=== PATIENT | female | born 1940 | race Caucasian/White ===

== ENCOUNTER → 2020-10-11 | Outpatient (CLI) | payer MEDICARE, OTHER ==
[~2020-10-11] MED LIST: ASPI81CH PO; ATOR10 PO; AZIT250 PO; BUDE6HFA INH; CLIN300 PO; CODACE30 PO; DOCU100 PO; Ferrous Sulfat325 M2; HYDACE5 PO; HYDCHL12.5 PO; LEVO750 PO; LEVSOD100 PO; LOSA50 PO; LOSHYD PO; METO25; PROACE100 PO; RXCODACET PO; RXPROACE PO
[2020-10-11 16:22] LABS: Appearance, Urine Clear (Clear); Bilirubin, Urine Neg (Neg); Blood, Urine 1+ (Neg); Color, Urine Yellow (P-Yellow); Glucose Qualitative, Urine Neg (Neg); Ketones, Urine Neg (Neg); Leukocyte Esterase, Urine 1+ (Neg); Nitrite, Urine Pos (Neg); Protein, Urine Neg (Neg); Urobilinogen, Urine NORM (Normal)
[2020-10-11 17:33] LABS: Bacteria Few /hpf; Squamous Epithelial Cells Few /hpf (Few)
== END | disposition home or self-care (01) ==
LOC: LAB 13:20 → LAB SHORT 13:20
PROVIDERS: Family Medicine
DX: N39.0 Urinary tract infection, site not specified (principal)
CPT/HCPCS: 81001; 87086

== ENCOUNTER 2021-04-13 10:23 | Inpatient (IN) | payer MEDICARE, OTHER ==
[~2021-04-13] VITALS: Ht 162.6 cm; Wt 68.0 kg
[2021-04-13] MEDS ORDERED: MEMANTINE HCL PO (10:46)
[2021-04-13] MEDS ORDERED: DONE5 PO (10:46)
[2021-04-13] MEDS ORDERED: PANT40 (10:47)
[2021-04-13] MEDS ORDERED: SERT50 PO (10:47)
[2021-04-13] MEDS ORDERED: LOPE2C (10:48)
[2021-04-13] MEDS ORDERED: ACET325 PO (10:48)
[2021-04-13] MEDS ORDERED: BISA10S (10:48)
[2021-04-13] MEDS ORDERED: DULCOLAX400 MG/5 M PO (10:49)
[2021-04-13 12:06] LABS: BASOPHILS ABSOLUTE AUTO 0.03 K/mm3 (0.00-0.23); BASOPHILS PERCENT AUTO 1 % (0-2); EOSINOPHILS ABSOLUTE AUTO 0.12 K/mm3 (0.00-0.68); EOSINOPHILS PERCENT AUTO 2 % (0-6); IMMATURE GRAN ABSOLUTE AUTO 0.02 K/mm3 (0.00-0.10); IMMATURE GRAN PERCENT AUTO 0 % (0-1); LYMPHOCYTES ABSOLUTE AUTO 1.17 K/mm3 (0.84-5.20); LYMPHOCYTES PERCENT AUTO 21 % (21-46); MONOCYTES ABSOLUTE AUTO 0.42 K/mm3 (0.16-1.47); MONOCYTES PERCENT AUTO 8 % (4-13); Mean Corpuscular HGB 24.4 pg (26.0-34.0); Mean Corpuscular HGB Conc 30.2 g/dL (31.5-36.5); Mean Corpuscular Volume 81 fL (80-100); Mean Platelet Volume 10.9 fL (9.1-12.4); NEUTROPHILS ABSOLUTE AUTO 3.86 K/mm3 (1.96-9.15); NEUTROPHILS PERCENT AUTO 69 % (41-73); Platelet Count 202 K/mm3 (150-400); RDW Coefficient Variation 14.6 % (11.7-14.2); RDW Standard Deviation 43.3 fL (35.1-46.3); Red Blood Cell Count 2.13 M/mm3 (3.80-5.20); White Blood Cell Count 5.62 K/mm3 (4.00-11.30)
[2021-04-13 12:17] LABS: Alanine Aminotransfer (ALT/SGP 15 U/L (12-78); Albumin, Blood 2.7 g/dL (3.4-5.0); Albumin/Globulin Ratio 0.8 (0.8-1.8); Alk Phos 87 U/L (50-136); Anion Gap 7 mmol/L (6-16); Aspartate Aminotrans (AST/SGOT 18 U/L (12-37); Bilirubin, Total 0.2 mg/dL (0.1-1.0); Blood Urea Nitrogen 17 mg/dL (8-24); Bun/Creatinine Ratio 27.9 (12.0-20.0); CO2, Blood 25 mmol/L (21-32); Chloride, Blood 111 mmol/L (98-108); Creatinine, Blood 0.61 mg/dL (0.40-1.00); Globulin, Blood 3.4 g/dL (2.2-4.0); Glomerular Filtration Rate >60 (60-); Glucose, Blood 112 mg/dL (70-99); Potassium, Blood 3.7 mmol/L (3.5-5.5); Sodium, Blood 143 mmol/L (136-145); Total Protein, Blood 6.1 g/dL (6.4-8.2); Troponin I 0.037 ng/mL (0.000-0.040)
[2021-04-13 12:28] LABS: Hemoglobin 5.2 g/dL (11.5-16.0)
[2021-04-13 12:29] LABS: Hematocrit 17.2 % (33.0-51.0)
[2021-04-13 17:35] LABS: Influenza A, PCR NEGATIVE (NEGATIVE); Influenza B, PCR NEGATIVE (NEGATIVE); Resp Syncytial Virus, PCR NEGATIVE (NEGATIVE); SARS-Cov-2 (COVID-19) PCR, MMC NEGATIVE (NEGATIVE)
--- NOTE | 2021-04-13 18:32 | NUR ---
2ND UNIT OF PRBC INFUSING. PT BECOMES AGITATED WILL SCREAM OUT AND HIT BED RAIL, SHE QUICKLY CALMS WHEN REDIRECTED
--- NOTE | 2021-04-13 18:43 | NUR ---
PT ARRIVED FROM ER THIS EVENING WITH GI BLEED. PT HAD ONE UNIT OF PRBC IN THE ER AND THE 2ND UNIT IS INFUSING NOW. PT ARRIVED PLEASANT BUT TEARFUL AND AFRAID. PT WAS ORIENTED TO THE UNIT. AFTER ARRIVAL PT BECOMES ANGRY AND SCAREMING AND HITTING THE BEDRAIL SCREAMING AT PCT, PT WAS REDIRECTED, SHE WAS VERY CONFUSED. AT THE TIME OF THIS NOTE BLOOD RATE WAS INCREASED, PT TALKING NONSENSICAL STATEMENTS THEN STS "I GUESS I SHOULDN'T SAY ANYTHING" BUT IT IS UNCLEAR WHAT PT IS TALKING ABOUT
[2021-04-13 20:24] LABS: Hematocrit 22.4 % (33.0-51.0)
--- NOTE | 2021-04-13 23:20 | NUR ---
ASSUMED CARE OF PATIENT AT 1900. A/O TO SELF ONLY WITH A HX OF DEMENTIA. MAINTAINS OVER 92% ON RA. HEART MURMUR AUSCULTATED, SR W/PAC AVG 64 PER TELEMETRY. RADIALS/PEDALS +1 BL. NO EDEMA NOTED. REPORTS HAVING DARK STOOLS, ALTHOUGH NOT WITNESSED ON THIS SHIFT. BEFORE 1 UNIT PRBC HGB OF 5.2, ALMOST FINISHED WITH THAT UNIT HGB OF 7.0. BED ALARM ON AND BED IN LOW POSITION. WILL UPDATE WITH ANY CHANGES THIS SHIFT.
[2021-04-14 04:38] LABS: Alanine Aminotransfer (ALT/SGP 14 U/L (12-78); Albumin, Blood 2.9 g/dL (3.4-5.0); Albumin/Globulin Ratio 0.8 (0.8-1.8); Alk Phos 91 U/L (50-136); Anion Gap 4 mmol/L (6-16); Aspartate Aminotrans (AST/SGOT 18 U/L (12-37); Bilirubin, Total 0.5 mg/dL (0.1-1.0); Blood Urea Nitrogen 16 mg/dL (8-24); Bun/Creatinine Ratio 26.8 (12.0-20.0); CO2, Blood 28 mmol/L (21-32); Calcium, Blood 8.3 mg/dL (8.5-10.1); Chloride, Blood 112 mmol/L (98-108); Globulin, Blood 3.6 g/dL (2.2-4.0); Glomerular Filtration Rate >60 (60-); Glucose, Blood 100 mg/dL (70-99); Potassium, Blood 3.8 mmol/L (3.5-5.5); Sodium, Blood 144 mmol/L (136-145); Total Protein, Blood 6.5 g/dL (6.4-8.2)
[2021-04-14 07:30] LABS: Hematocrit 21.2 % (33.0-51.0); Hemoglobin 6.8 g/dL (11.5-16.0)
--- NOTE | 2021-04-14 10:09 | NUR ---
PO MEDS ARE HELD PT CAN NOT STAY AWAKE LONG ENOUGH TO TAKE PO MEDS
--- NOTE | 2021-04-14 14:44 | NUR ---
History, Chart, Medications and Allergies reviewed before start of procedure.Pre-Op teaching done. Pt verbalizes understanding. Patient AND NURSE confirms NPO status and agrees with scheduled surgery. PT'S SON AT BEDSIDE TO SIGN CONSENTS
--- NOTE | 2021-04-14 14:49 | NUR ---
04/14/21 1449 Joan Azevedo History, Chart, Medications and Allergies reviewed before start of procedure.MONITOR INTACT WITH CONTINUOUS PULSE OXIMETRY, 3-LEAD,AND INTERMITTENT BP.O2 VIA N/C INTACT THROUGHOUT SEDATION/PROCEDURE. See Anesthesia record
[2021-04-14 16:10] LABS: Hematocrit 22.3 % (33.0-51.0)
--- NOTE | 2021-04-14 18:39 | NUR ---
PT HAS BEEN TO DAY DAY SURGERY FOR ENDOSCOPY, NO INTERVENTION NEEDED. PT CONFUSED, PT EXITING BED THIS AM SHE WAS PLACED INTO A MARIO VEST AT 1100 TODAY. PT WITH VSSIXTO Holcomb. NO ACTIVE BLEEDING. GOOD URINE OUTPUT. PT WITH 3RD UNIT OF BLOOD INFUSING AT THIS TIME. PT'S FAMILY IS INFORMED OF ENDOSCOPT OUTCOME. BLOOD INFUSING AT 125ML/HR.
--- NOTE | 2021-04-14 20:54 | NUR ---
ASSUMED CARE OF PATIENT AT APPROXIMATELY 1900 FROM BRIE Torres RN. PATIENT ALERT TO SELF; UNABLE TO STATE DATE, LOCATION, OR EVENT BUT ABLE TO STATE SHE IS IN [place]. ATTEMPTS TO GET OUT OF BED; WEAK; UNSTEADY GAIT; CONFUSED; VEST IN PLACE. NSR W/ PAC'S ON TELE; OXYGEN SATURATION ABOVE 90% ON ROOM AIR. 3RD PRBC FINISHED INFUSING SHORTLY AFTER SHIFT CHANGE. PATIENT DENIES PAIN, NUMBNESS, TINGLING, DIZZINESS AND NAUSEA. PIV S/L.
[2021-04-14 21:04] LABS: Hematocrit 26.4 % (33.0-51.0); Hemoglobin 8.7 g/dL (11.5-16.0)
[2021-04-15 00:43] LABS: Hematocrit 24.7 % (33.0-51.0)
[2021-04-15 05:00] LABS: Hematocrit 27.3 % (33.0-51.0); Hemoglobin 8.8 g/dL (11.5-16.0)
[2021-04-15 06:06] LABS: Anion Gap 7 mmol/L (6-16); Blood Urea Nitrogen 11 mg/dL (8-24); Bun/Creatinine Ratio 20.4 (12.0-20.0); CO2, Blood 27 mmol/L (21-32); Calcium, Blood 8.4 mg/dL (8.5-10.1); Chloride, Blood 110 mmol/L (98-108); Creatinine, Blood 0.54 mg/dL (0.40-1.00); Ferritin, Serum 12 ng/mL (8-252); Glomerular Filtration Rate >60 (60-); Glucose, Blood 88 mg/dL (70-99); Iron Serum 24 ug/dL (50-170); Percent Saturation 6.7 % (15.0-50.0); Potassium, Blood 3.8 mmol/L (3.5-5.5); Sodium, Blood 144 mmol/L (136-145); Total Iron Binding Capacity 359 ug/dL (250-450)
--- NOTE | 2021-04-15 06:14 | NUR ---
PATIENT SLEPT ABOUT FIVE HOURS TOTAL; CONFUSED; ATTEMPTED TO GET OUT OF BED; THOUGHT SHE WAS AT HOME. NO ACUTE CHANGES TO REPORT.
[2021-04-15 08:47] LABS: Hematocrit 28.6 % (33.0-51.0); Hemoglobin 9.1 g/dL (11.5-16.0)
[2021-04-15] MEDS ORDERED: FERSU300 PO (11:01)
[2021-04-15] MEDS ORDERED: METO25 PO (11:01)
[2021-04-15 12:42] LABS: Hematocrit 27.7 % (33.0-51.0); Hemoglobin 8.9 g/dL (11.5-16.0)
--- NOTE | 2021-04-15 15:12 | NUR ---
PT DISCHARGE BACK TO [place], REPORT GIVEN TO ALEXIS, ZAINA CEVALLOS ALSO CALLED AND GIVEN UPDATE. PT TO FOLLOW UP WITH DR ALEX OUTPT FOR POSSIBLE CAPSULE ENDOSCOPY/COLONOSCOPY. DISCHARGED MEDS SENT WITH PT ALSO PERSONAL BELONGINGS, CAB CALLED FOR TRANSPO. PT VITALS HAS BEEN STABLE, PT IS ALERT SOMEHAT FORGETFUL, WAS ABLE TO STAND AND TRANSFER TO USE BEDSIDE COMMODE SBA, PT ABLE TO CALL APPROPRIATELY, CONTINENT. NO ATTEMPTS GETTING OUT OF BED, MARIO FERRELL DC'D AT THE BEGINNING OF THE SHIFT. HGB STABLE LAST DRAWN AT 12NN WAS 8.9, NO REPORTED BLOOD IN THE STOOLS OR SIGNS/INDICATION OF BLEEDING. PT ACCOMPANIED VIA WHEELCHAIR FOR TRANSPORT.
== END 2021-04-15 15:08 | disposition home or self-care (01) | DRG 378 ==
LOC: ER 10:23 → PCU 15:58
PROVIDERS: Emergency Medicine; Internal Medicine; Internal Medicine Gastroenterology; Nurse Practitioner Acute Care; ADMIT Family Medicine
PROC: 30233N1 Transfusion of Nonautologous Red Blood Cells into Peripheral Vein, Percutaneous Approach (ICD-10-PCS; 2021-04-13)
PROC: 0DJ08ZZ Inspection of Upper Intestinal Tract, Via Natural or Artificial Opening Endoscopic (ICD-10-PCS; principal; 2021-04-14 15:30)
DX: K92.2 Gastrointestinal hemorrhage, unspecified (principal); D62 Acute posthemorrhagic anemia; I42.1 Obstructive hypertrophic cardiomyopathy; Z20.822 Contact with and (suspected) exposure to COVID-19; K31.7 Polyp of stomach and duodenum; T47.1X5A Adverse effect of other antacids and anti-gastric-secretion drugs, initial encounter; I10 Essential (primary) hypertension; K22.2 Esophageal obstruction; K21.9 Gastro-esophageal reflux disease without esophagitis; M25.562 Pain in left knee; G89.29 Other chronic pain; E89.0 Postprocedural hypothyroidism; K44.9 Diaphragmatic hernia without obstruction or gangrene; E78.5 Hyperlipidemia, unspecified; F32.A Depression, unspecified; E61.1 Iron deficiency; F03.90 Unspecified dementia, unspecified severity, without behavioral disturbance, psychotic disturbance, mood disturbance, and anxiety; Z79.899 Other long term (current) drug therapy; Z88.5 Allergy status to narcotic agent; Z88.8 Allergy status to other drugs, medicaments and biological substances; Z87.891 Personal history of nicotine dependence
CPT/HCPCS: 0241U; 36415; 36430; 80048; 80053; 82728; 83540; 83550; 84484; 85014; 85018; 85025; 86850; 86900; 86901; 86923; 93005; 93010; 96361; 96365; 96366; 96375; 99285-25; A9270; C9113; J7030; J7120; P9016

== ENCOUNTER 2021-04-27 10:30 | Inpatient (IN) | payer MEDICARE, OTHER ==
[~2021-04-27] VITALS: Ht 162.6 cm; Wt 78.0 kg
[~2021-04-27 10:30] MED LIST changes: +ACET325 PO; +BISA10S PR; +DONE5 PO; +DULCOLAX400 MG/5 M PO; +FERSU300 PO; -LEVSOD100 PO; +LEVSOD112 PO; +LOPE2C; +MEMANTINE HCL PO; +METO25 PO; +PANT40 PO; +SERT50 PO
[2021-04-27 10:50] LABS: BASOPHILS ABSOLUTE AUTO 0.04 K/mm3 (0.00-0.23); BASOPHILS PERCENT AUTO 1 % (0-2); EOSINOPHILS ABSOLUTE AUTO 0.13 K/mm3 (0.00-0.68); EOSINOPHILS PERCENT AUTO 2 % (0-6); Hematocrit 24.1 % (33.0-51.0); Hemoglobin 7.2 g/dL (11.5-16.0); IMMATURE GRAN ABSOLUTE AUTO 0.03 K/mm3 (0.00-0.10); IMMATURE GRAN PERCENT AUTO 0 % (0-1); LYMPHOCYTES ABSOLUTE AUTO 1.12 K/mm3 (0.84-5.20); LYMPHOCYTES PERCENT AUTO 16 % (21-46); MONOCYTES ABSOLUTE AUTO 0.49 K/mm3 (0.16-1.47); MONOCYTES PERCENT AUTO 7 % (4-13); Mean Corpuscular HGB 24.7 pg (26.0-34.0); Mean Corpuscular HGB Conc 29.9 g/dL (31.5-36.5); Mean Corpuscular Volume 83 fL (80-100); Mean Platelet Volume 11.3 fL (9.1-12.4); NEUTROPHILS ABSOLUTE AUTO 5.02 K/mm3 (1.96-9.15); NEUTROPHILS PERCENT AUTO 74 % (41-73); Platelet Count 193 K/mm3 (150-400); RDW Coefficient Variation 16.1 % (11.7-14.2); RDW Standard Deviation 48.9 fL (35.1-46.3); Red Blood Cell Count 2.91 M/mm3 (3.80-5.20); White Blood Cell Count 6.83 K/mm3 (4.00-11.30)
[2021-04-27] MEDS ORDERED: CIPR500 PO (10:55)
[2021-04-27 11:20] LABS: Source, Urine Clean Catch
[2021-04-27 11:24] LABS: Alanine Aminotransfer (ALT/SGP 13 U/L (12-78); Albumin, Blood 2.9 g/dL (3.4-5.0); Albumin/Globulin Ratio 0.8 (0.8-1.8); Alk Phos 96 U/L (50-136); Anion Gap 4 mmol/L (6-16); Aspartate Aminotrans (AST/SGOT 15 U/L (12-37); Bilirubin, Total 0.3 mg/dL (0.1-1.0); Blood Urea Nitrogen 12 mg/dL (8-24); Bun/Creatinine Ratio 16.6 (12.0-20.0); CO2, Blood 28 mmol/L (21-32); Calcium, Blood 8.3 mg/dL (8.5-10.1); Chloride, Blood 112 mmol/L (98-108); Creatinine, Blood 0.72 mg/dL (0.40-1.00); Globulin, Blood 3.6 g/dL (2.2-4.0); Glomerular Filtration Rate >60 (60-); Glucose, Blood 109 mg/dL (70-99); Sodium, Blood 144 mmol/L (136-145); Total Protein, Blood 6.5 g/dL (6.4-8.2)
[2021-04-27 11:28] LABS: Appearance, Urine Clear (Clear); Bilirubin, Urine Neg (Neg); Blood, Urine 1+ (Neg); Color, Urine Yellow (P-Yellow); Glucose Qualitative, Urine Neg (Neg); Ketones, Urine Neg (Neg); Leukocyte Esterase, Urine Neg (Neg); Nitrite, Urine Neg (Neg); Protein, Urine 2+ (Neg); Urobilinogen, Urine 2+ (Normal)
[2021-04-27 12:25] LABS: White Blood Cells, Urine 0-2 /hpf (0-5)
[2021-04-27 12:26] LABS: Bacteria Rare /hpf; Mucus Heavy (0-Heavy); Red Blood Cells, Urine 0-2 /hpf (0-2); Squamous Epithelial Cells Few /hpf (Few)
[2021-04-27 16:03] LABS: Hematocrit 22.8 % (33.0-51.0); Hemoglobin 6.8 g/dL (11.5-16.0)
--- NOTE | 2021-04-27 19:08 | NUR ---
PT TRANSFERRED TO ROOM PRIOR TO END OF SHIFT. DID ASSESSMENT BUT NOT HISTORY. ABLE TO TALK TO ME, BUT UNABLE TO TEL ME HER AGE, DATE, PRESIDENT. IS QUITE PLEASANT AND COOP SON AT BEDSIDE DURING ADMIT. H/R REG, NO MURMER NOTED. PER TELE S DEBBI IN MID 50'S. SON STATES THIS IS HER NORMAL. NO PACER. LUNGS CLEAR, RESP EASY, UNLABORED. ON R.A. BT X4 LAST BM TODAY PER PT. SHE UNSURE OF COLOR. HATS PLACED IN COMMODE TO MONITOR B/M'S. VOIDS SBA TO BATHROOM. PT DOES SUND. BED IN LOW POSITION, CALLLITE IN REACH, BED ALARM ON FOR SAFETY
[2021-04-27 23:51] LABS: Hematocrit 21.7 % (33.0-51.0); Hemoglobin 6.6 g/dL (11.5-16.0)
--- NOTE | 2021-04-28 00:35 | NUR ---
LABS: H&H IS 6.6 AND 21.7, DR CRAWFORD IS NOTIFIED AND 1 UNIT PRBC IS ORDERED.
--- NOTE | 2021-04-28 05:43 | NUR ---
SHIFT SUMMARY: PATIENT REMAINS CONFUSED THROUGH THE NIGHT, BED ALARM IS ON. TRANSFUSED 1 UNIT OF PRBC. PATIENT TOLERATED WELL, NO S/S OF TRANSFUSION REACTION. NO ACTIVE BLEEDING OBSERVED. PATIENT IS NOW UP IN THE CHAIR, CHAIR ALARM IS IN PLACE.
[2021-04-28 06:34] LABS: Hematocrit 26.5 % (33.0-51.0); Hemoglobin 8.2 g/dL (11.5-16.0)
--- NOTE | 2021-04-28 18:05 | NUR ---
PT QUITE PLEASANT COOP TODAY. CONTINUES TO BE CONFUSED. MYSELF WALKED PT AROUND [facility] TODAY. SON MART AND ALSO DID SAME. PT DID WELL. ADITYA YU IN AND IS TO BE NPO AFTER BKFST TOMORROW. SCOPE TOMORROW. WILL START CLEANSING TONITE. NO C/O PAIN. NO NEW CONCERNS NOTED. BED IN LOW POSITION, CALL LITE IN REACH, BED ALARM ON FOR SAFETY
--- NOTE | 2021-04-29 06:05 | NUR ---
SHIFT SUMMARY: PATIENT IS ALERT AND ORIENTED TO HER FIRST NAME ONLY. BED ALARM IS ON FOR SAFTEY BOWEL PREP WAS STARTED 193, TOLERATED WELL. STOOL IS BLACKISH/GREEN IN COLOR. BOWEL PREP RESTARTED AT 529. PATIENT HAS REMAINED CONTINENT AND USE BSC WITH ASSIST OF 1.
--- NOTE | 2021-04-29 07:21 | NUR ---
ASSUMED CARE: PT RESTING QUIETLY AT THIS TIME. NO ACUTE NEEDS OR CONCERNS NOTED. NSR WITH PACS ON TELE, RATE OF 65
[2021-04-29 09:17] LABS: Hematocrit 27.9 % (33.0-51.0); Hemoglobin 8.8 g/dL (11.5-16.0); Mean Corpuscular HGB 25.4 pg (26.0-34.0); Mean Corpuscular HGB Conc 31.5 g/dL (31.5-36.5); Mean Corpuscular Volume 81 fL (80-100); Mean Platelet Volume 10.4 fL (9.1-12.4); Platelet Count 261 K/mm3 (150-400); RDW Coefficient Variation 16.9 % (11.7-14.2); RDW Standard Deviation 49.3 fL (35.1-46.3); Red Blood Cell Count 3.46 M/mm3 (3.80-5.20); White Blood Cell Count 6.11 K/mm3 (4.00-11.30)
[2021-04-29 09:49] LABS: Albumin, Blood 3.3 g/dL (3.4-5.0); Anion Gap 10 mmol/L (6-16); Blood Urea Nitrogen 7 mg/dL (8-24); Bun/Creatinine Ratio 10.3 (12.0-20.0); CO2, Blood 25 mmol/L (21-32); Calcium, Blood 8.5 mg/dL (8.5-10.1); Chloride, Blood 106 mmol/L (98-108); Creatinine, Blood 0.68 mg/dL (0.40-1.00); Glomerular Filtration Rate >60 (60-); Glucose, Blood 84 mg/dL (70-99); Phosphorus, Blood 4.1 mg/dL (2.5-4.9); Potassium, Blood 3.6 mmol/L (3.5-5.5); Sodium, Blood 141 mmol/L (136-145)
[2021-04-29 10:36] LABS: Influenza A, PCR NEGATIVE (NEGATIVE); Influenza B, PCR NEGATIVE (NEGATIVE); Resp Syncytial Virus, PCR NEGATIVE (NEGATIVE); SARS-Cov-2 (COVID-19) PCR, MMC NEGATIVE (NEGATIVE)
--- NOTE | 2021-04-29 11:30 | NUR ---
ATTEMPTED TO GET PT TO FINISH GOLYTELY BUT PT STATED SHE FELT NAUSEATED IF SHE DRANK ANYMORE. CALL TO DR CHAMBERLAIN TO LET HIM KNOW THAT SHE WAS ONLY HALF WAY THROUGH THE SECOND DOSE. LET HIM KNOW THAT STOOL IS LIQUID MAROON WITH SOME SEDIMENT. STATES TO STOP GOLYTELY NOW DUE TO PROCEDURE BEING AT 1PM. STATES HE WILL CONTINUE WITH PROCEDURE AND WILL SEE WHAT WE CAN SEE. SEAFOOD PREPARER AWARE
--- NOTE | 2021-04-29 14:03 | NUR ---
04/29/21 1402 Brigitte Mendoza History, Chart, Medications and Allergies reviewed before start of procedure. NURSE confirms NPO status and agrees with scheduled surgery. 3-LEAD EKG REVIEWED WITH PHYSICIAN PRIOR TO START OF PROCEDURE. MONITOR INTACT WITH CONTINUOUS PULSE OXIMETRY AND INTERMITTENT BP. CARE BY SEE PAPER ANESTHESIA RECORD.
--- NOTE | 2021-04-29 14:37 | NUR ---
PT TAKEN TO DAY SURGERY FOR PROCEDURE
--- NOTE | 2021-04-29 16:34 | NUR ---
PT RETURNED FROM DAY SURGERY, PROCEDURE COMPLETED. REPORT RECIEVED FROM WALLY GUZMÁN. DR CHAMBERLAIN SAID HE WOULD CALL PT'S FAMILY AND GIVE THEM AN UPDATE. PT IS LETHARGIC BUT ROUSEABLE. BOTTOM PAINTER AT BEDSIDE GETTING VITALS AT THIS TIME.
--- NOTE | 2021-04-29 17:35 | NUR ---
SHIFT SUMMARY: PT HAD COLONOSCOPY DONE TODAY. DR CHAMBERLAIN STATED HE WOULD GIVE FAMILY UPDATE TO FINDINGS. PT RESTING QUIETLY IN BED, BACK ON TELE. NO ACUTE NEEDS AT THIS TIME.
--- NOTE | 2021-04-30 05:12 | NUR ---
SHIFT SUMMARY ALERT, ABLE TO MAKE NEEDS KNOWN. COOPERATIVE WITH CARE. APPEARED TO REST MUCH OF THE NIGHT. NO ACUTE CHANGES NOTED. VSS/AFEBRILE. BED REMAINS IN LOWEST POSITION. CALL LIGHT WITHIN REACH. REPORT TO ONCOMING RN.
--- NOTE | 2021-04-30 07:10 | NUR ---
ASSUMED CARE: PT RESTING QUIETLY AT THIS TIME. SINUS DEBBI AT 58 ON TELE. NO ACUTE NEEDS AT PRESENT
[2021-04-30 08:55] LABS: Hematocrit 27.4 % (33.0-51.0); Hemoglobin 8.3 g/dL (11.5-16.0); Mean Corpuscular HGB 24.9 pg (26.0-34.0); Mean Corpuscular HGB Conc 30.3 g/dL (31.5-36.5); Mean Corpuscular Volume 82 fL (80-100); Mean Platelet Volume 10.5 fL (9.1-12.4); Platelet Count 247 K/mm3 (150-400); RDW Coefficient Variation 16.7 % (11.7-14.2); RDW Standard Deviation 49.6 fL (35.1-46.3); Red Blood Cell Count 3.34 M/mm3 (3.80-5.20)
--- NOTE | 2021-04-30 09:33 | NUR ---
DR CHAMBERLAIN CAME TO SEE PT AND STATES SHE IS OK TO DISCHARGE FROM HIS STANDPOINT. RECOMMENDS IRON INFUSIONS BEFORE SHE GOES HOME. AWARE THAT SHE LIVES AT [facility] AND MAY BE HERE A COUPLE MORE DAYS. PT DENIES NEEDS OR CONCERNS.
--- NOTE | 2021-04-30 11:31 | NUR ---
DR MILLER CAME TO SEE PT. MADE HER AWARE OF DR CHAMBERLAIN'S RECOMMENDATIONS. CALL TO [facility] TO SEE IF PT WAS ABLE TO DISCHARGE TODAY. STAFF STATES A NURSE TILE PICKER WOULD BE AVAILABLE SATURDAY AND WE WOULD HAVE TO CALL THEM TO SCHEDULE THAT ON SATURDAY. DR MILLER AWARE OF THIS DELAY IS SPRING MANUFACTURING SET UP TECHNICIAN
--- NOTE | 2021-04-30 18:12 | NUR ---
SHIFT SUMMARY: DOCTORS FEEL PT IS STABLE FOR DISCHARGE. GREENHOUSE OR NURSERY TRANSPLANTER AWARE THAT STAFF WILL HAVE TO CALL [facility] TOMORROW TO HAVE NURSE RE-EVALUATE PT FOR DISCHARGE. PT RECIEVED IRON INFUSION THIS SHIFT. NO ACUTE NEEDS OR CONCERNS AT THIS TIME.
--- NOTE | 2021-05-01 04:08 | NUR ---
SHIFT SUMMARY ALERT. ABLE TO MAKE NEEDS KNOWN. CONFUSED AT TIMES, BUT RE-DIRECTABLE. COOPERATIVE WITH CARE. AWAITING DISCHARGE TO BACK TO [place] ([address] NO ACUTE CHANGES NOTED OVERNIGHT. VSS/AFEBRILE. BED REMAINS IN LOWEST POSITION; ALARM ON. CALL LIGHT WITHIN REACH. REPORT TO ONCOMING RN.
[2021-05-01 05:08] LABS: Hematocrit 25.3 % (33.0-51.0); Hemoglobin 7.7 g/dL (11.5-16.0); Mean Corpuscular HGB 24.8 pg (26.0-34.0); Mean Corpuscular HGB Conc 30.4 g/dL (31.5-36.5); Mean Corpuscular Volume 81 fL (80-100); Mean Platelet Volume 10.5 fL (9.1-12.4); Platelet Count 230 K/mm3 (150-400); RDW Standard Deviation 49.7 fL (35.1-46.3); Red Blood Cell Count 3.11 M/mm3 (3.80-5.20); White Blood Cell Count 7.73 K/mm3 (4.00-11.30)
--- NOTE | 2021-05-01 11:35 | NUR ---
DISCHARGE- SPOKE WITH AMANDA AT [facility]. PER AMANDA CLEANING FOR PT TO RETURN TO [place]. ORDERS FAXED TO [phone]. AMANDA REPORTS SON WILL SCHEDULE FOLLOW UP APPOINTMENTS AND TO CALL SON FOR RIDE HOME. UPDATE TO BEDSIDE RN JODI.
[2021-05-01 14:06] LABS: Hematocrit 27.4 % (33.0-51.0); Hemoglobin 8.5 g/dL (11.5-16.0)
--- NOTE | 2021-05-01 15:41 | NUR ---
DISCHARGE SUMMARY PT IS AAO TO SELF AND FAMILY, PLEASANTLY CONFUSED AND REDIRECTABLE. ABLE TO FOLLOW SIMPLE INSTRUCTIONS FROM STAFF. PT ALSO FORGETFUL. PATIENT AND FAMILY VERBALIZED UNDERSTANDING OF DISCHARGE ORDERS AND EDUCATION. NO ISSUES OR CONCERNS NOTED FROM PATIENT OR FAMILY PRIOR TO DC. PT HAD NO C/O PAIN OR ANY DISCOMFORT THIS SHIFT PRIOR TO DISCHARGE. IV LINE AND DC DISCONTINUED. DISCHARGE PAPERWORK GIVEN TO PATIENT'S SON UPON DC. PT TO RETURN TO [place] DISCHARGE.
== END 2021-05-01 15:41 | disposition home or self-care (01) | DRG 374 ==
LOC: ER 10:30 → ERHOLD 10:31 → MEDS 10:31 → ENPENDDIS 05-01 10:53 → MEDS 05-01 15:41
PROVIDERS: Emergency Medicine; Hospitalist; Internal Medicine; Student in an Organized Health Care Education/Training Program; ADMIT Internal Medicine
PROC: 0DBK8ZX Excision of Ascending Colon, Via Natural or Artificial Opening Endoscopic, Diagnostic (ICD-10-PCS; principal; 2021-04-29 13:00)
PROC: 0DBN8ZZ Excision of Sigmoid Colon, Via Natural or Artificial Opening Endoscopic (ICD-10-PCS; 2021-04-29 13:00)
DX: C18.2 Malignant neoplasm of ascending colon (principal); G93.41 Metabolic encephalopathy; N39.0 Urinary tract infection, site not specified; D62 Acute posthemorrhagic anemia; E03.9 Hypothyroidism, unspecified; Z20.822 Contact with and (suspected) exposure to COVID-19; Z66 Do not resuscitate; E78.5 Hyperlipidemia, unspecified; I10 Essential (primary) hypertension; G30.9 Alzheimer's disease, unspecified; F02.80 Dementia in other diseases classified elsewhere, unspecified severity, without behavioral disturbance, psychotic disturbance, mood disturbance, and anxiety; Z88.5 Allergy status to narcotic agent; Z88.8 Allergy status to other drugs, medicaments and biological substances; D64.9 Anemia, unspecified; K21.9 Gastro-esophageal reflux disease without esophagitis; F03.90 Unspecified dementia, unspecified severity, without behavioral disturbance, psychotic disturbance, mood disturbance, and anxiety; Z90.49 Acquired absence of other specified parts of digestive tract; Z98.890 Other specified postprocedural states; Z90.710 Acquired absence of both cervix and uterus; Z87.891 Personal history of nicotine dependence; Z79.899 Other long term (current) drug therapy; F32.A Depression, unspecified; Z90.722 Acquired absence of ovaries, bilateral; K57.30 Diverticulosis of large intestine without perforation or abscess without bleeding; K64.4 Residual hemorrhoidal skin tags
CPT/HCPCS: 0241U; 36415; 36430; 51701; 80053; 80069; 81001; 82272; 82947; 84439; 84443; 85014; 85018; 85025; 85027; 86850; 86900; 86901; 86923; 87086; 88305; 93005; 93010; 97161; 99285-25; A9270; G0378; J2704; J2916; J7050; J7120; P9016